=== PATIENT | female | born 1980 | race Caucasian/White ===

== ENCOUNTER 2017-12-26 09:28 | Emergency (ER) | payer SELFPAY ==
[2017-12-26 09:33] VITALS: BP 117/89
== END 2017-12-26 10:22 | disposition left against medical advice (07) ==
DX: Z53.21 Procedure and treatment not carried out due to patient leaving prior to being seen by health care provider (principal)

== ENCOUNTER 2018-01-08 08:00 | Emergency (ER) | payer OTHER ==
[2018-01-08 08:05] VITALS: BP 116/82
--- NOTE | 2018-01-08 08:15 | EDPHY ---
H & P Stated Complaint: slipped on floor in socks inj r elbow Time Seen by Provider: 01/08/18 08:11 HPI/ROS: Chief Complaint: Fall, elbow pain HPI: 37-year-old woman woke up this morning in immediately stood up out of bed. She became lightheaded and slipped on the floor, falling to right-sided landing on her elbow. She did not have a loss of consciousness. She has severe elbow pain. No prior injuries. No prior chest pains or palpitations. No fevers or chills. Did not hit her head. No headache or neck pain. No numbness or weakness. ROS: 10 point Review of Systems is negative except as noted in the HPI. PMH: Hysterectomy Social History: Daily heavy smoking, occasional alcohol, denies other drug use Family History: non-contributory Physical Exam: Gen: Awake, Alert, No Distress HEENT: Nose: no rhinorrhea Eyes: PERRLA, EOMI Mouth: Moist mucosa Neck: Supple, no JVD Chest: nontender, lungs clear to auscultation Heart: S1, S2 normal, no murmur Abd: Soft, non-tender, no guarding Back: no CVA tenderness, no midline tenderness Ext: no edema, right shoulder is nontender, full range of motion without pain, right wrist nontender, full range of motion without pain, right elbow. She has some mild tenderness over the medial epicondyle. No olecranon tenderness. No radial head tenderness. She has normal pronation supination. She is able to extend to 120 with some discomfort. Skin: no rash Neuro: CN II-XII intact, Sensation grossly intact, Strength 5/5 in bilateral upper and lower extremities - Personal History LMP (Females 10-55): Hysterectomy Current Tetanus Diphtheria and Acellular Pertussis (TDAP): Yes - Medical/Surgical History Hx Asthma: No Hx Chronic Respiratory Disease: No Hx Diabetes: No Hx Cardiac Disease: No Hx Renal Disease: No Hx Cirrhosis: No Hx Alcoholism: No Hx HIV/AIDS: No Hx Splenectomy or Spleen Trauma: No Other PMH: hysterectomy/choly - Social History Smoking Status: Current every day smoker Constitutional: Initial Vital Signs Temperature (C) 36.7 C 01/08/18 08:03 Heart Rate 94 01/08/18 08:03 Respiratory Rate 16 07/03/18 08:03 Blood Pressure 116/82 H 01/08/18 08:03 O2 Sat (%) 97 01/08/18 08:03 O2 Delivery Mode Room Air Allergies/Adverse Reactions: No Known Allergies Allergy (Verified 01/08/18 08:01) Home Medications: Medication Instructions Recorded NK [No Known Home Meds] 12/26/17 Medical Decision Making - Diagnostics EKG Interpretation: ECG time 8:16 a.m., sinus rhythm with a rate of 86, normal axis, normal intervals, no acute ST or T-wave changes. Impression: Normal ECG. Imaging Results: Imaging Impressions Elbow X-Ray 01/08/18 08:11 Impression: Negative. No acute fracture or effusion. ED Course/Re-evaluation: Elbow x-rays negative. Patient ECG is normal. She is otherwise no risk factors for a arrhythmia. She did not have Sadi full syncopal event. Given her age she has not have any other risk factors for acute coronary event. Will discharge with [id number] analgesia, follow up with her primary care physician for further evaluation. Departure - Departure Disposition: Home, Routine, Self-Care Clinical Impression: Elbow contusion Condition: Good Instructions: Contusion in Adults (ED) Additional Instructions: You may alternate acetaminophen with ibuprofen as needed for pain. Apply ice for 15 min of every hour while awake for the next 2 days. Follow up with primary care physician in 4-5 days for further evaluation. Return to the emergency department for fainting, chest pain, shortness of breath , heart racing, or any other concerns. Referrals: Deshaun Ching DO [Doctor of Osteopathy] - As per Instructions
--- NOTE | 2018-01-08 08:19 | CPEKG ---
Heart Rate: 86 RR Interval: 698 P-R Interval: 136 QRSD Interval: 82 QT Interval: 384 QTC Interval: 460 P [place]: 54 QRS [place]: 75 T Wave [place]: 45 EKG Severity - NORMAL ECG - EKG Impression: SINUS RHYTHM Electronically Signed By: Nicholas Navarro 08-Jan-2018 14:10:10
[2018-01-08] MEDS ORDERED: IBUPROFEN 600 MG TAB PO ONE (08:44)
== END 2018-01-08 09:06 | disposition home or self-care (01) ==
DX: S50.01XA Contusion of right elbow, initial encounter (principal); F17.200 Nicotine dependence, unspecified, uncomplicated; W01.190A Fall on same level from slipping, tripping and stumbling with subsequent striking against furniture, initial encounter; Y92.89 Other specified places as the place of occurrence of the external cause; Y99.8 Other external cause status; Y93.89 Activity, other specified